=== PATIENT | male | born 2000 ===

== ENCOUNTER 2018-11-21 15:45 | Inpatient (IN) | payer OTHER ==
[2018-11-21 16:28] VITALS: O2SAT 99
--- NOTE | 2018-11-21 16:47 | C.PDOC ---
History Of Present Illness 18 years old male with no PMHx presents to ED for evaluation of feeling "pressure to head" and anxious. ongoing issue for months. Mother at bed side states patient has been acting bizarre, "sometimes seen with candles at night, reading bible, pacing"Denies fevers or any other complaints. Patient noted in ER to have no acute distress. Time Seen by Provider: 11/21/18 16:01 Chief Complaint (Nursing): Headache History Per: Patient, Family (Mother ) History/Exam Limitations: no limitations Onset/Duration Of Symptoms: Hrs Current Symptoms Are (Timing): Still Present Preceeding Symptoms: None Recent travel outside of the [place]: No Past Medical History Reviewed: Historical Data, Nursing Documentation, Vital Signs Vital Signs: Last Vital Signs Temp 99.4 F 11/21/18 15:56 Pulse 94 H 11/21/18 15:56 Resp 18 11/21/18 15:56 BP 137/88 11/21/18 15:56 Pulse Ox 99 11/21/18 15:56 - Medical History PMH: No Chronic Diseases Surgical History: No Surg Hx Family History: States: No Known Family Hx - Social History Hx Alcohol Use: No Hx Substance Use: No - Immunization History Hx Tetanus Toxoid Vaccination: No Hx Influenza Vaccination: No Hx Pneumococcal Vaccination: No Review Of Systems Except As Marked, All Systems Reviewed And Found Negative. Constitutional: Negative for: Fever, Chills Gastrointestinal: Negative for: Nausea, Vomiting, Diarrhea Skin: Negative for: Rash Neurological: Positive for: Other (Pressure to head ). Negative for: Weakness, Numbness Psych: Positive for: Anxiety. Negative for: Suicidal ideation Physical Exam - Physical Exam Appears: Non-toxic, No Acute Distress, Other (Anxious ) Skin: Normal Color, Warm, Dry, No Rash Head: Atraumatic, Normacephalic Eye(s): bilateral: Normal Inspection, PERRL, EOMI Oral Mucosa: Moist Neck: Normal ROM, Supple Chest: Symmetrical, No Tenderness Cardiovascular: Rhythm Regular, No Murmur Respiratory: Normal Breath Sounds, No Rales, No Rhonchi, No Wheezing Gastrointestinal/Abdominal: Soft, No Tenderness Extremity: Normal ROM Extremity: Bilateral: Atraumatic, Normal Color And Temperature, Normal ROM Pulses: Left Radial: Normal, Right Radial: Normal Neurological/Psych: Oriented x3, Normal Speech, Other (No focal deficits ) Gait: Steady ED Course And Treatment - Laboratory Results Result Diagrams: 11/21/18 17:29 11/21/18 17:29 O2 Sat by Pulse Oximetry: 99 (RA) Pulse Ox Interpretation: Normal Medical Decision Making Medical Decision Making: ro medical etiology, suspect underlying pyschaitric illness Plan: * Blood work * Urinalysis * CT Head labs ct neg. visual acuity 20/20. . medically cleared . accepted dr guo. Disposition - Disposition Disposition: HOSPITALIZED Disposition Time: 19:51 Condition: STABLE - Clinical Impression Clinical Impression: Schizophrenia - PA / COMPOSITOR APPRENTICE / Resident Statement MD/DO has reviewed & agrees with the documentation as recorded. - Scribe Statement Carlos Tinoco All medical record entries made by the Scribe were at my direction and personally dictated by me. I have reviewed the chart and agree that the record accurately reflects my personal performance of the history, physical exam, medical decision making, and the department course for this patient. I have also personally directed, reviewed, and agree with the discharge instructions and disposition. Decision To Admit - Pt Status Changed To: Hospital Disposition Of: Inpatient - Admit Certification Admit to Inpatient:: After my assessment, the patient will require hospitalization for at least two midnights. This is because of the severity of symptoms shown, intensity of services needed, and/or the medical risk in this patient being treated as an outpatient. - InPatient: Physician Admission Certification: I certify that this patient requires 2 or more midnights of care for the following reason:: needs psych - . Bed Request Type: Psychiatry Admitting Physician: Nhung Guo Patient Diagnosis: Schizophrenia
[2018-11-21 17:36] LABS: BASO % 0.4 % (0.0-2.0); EOS # 0.1 K/uL (0.0-0.7); EOS % 1.6 % (0.0-4.0); HEMOGLOBIN 15.5 g/dL (12.0-18.0); LYMPH # 1.6 K/uL (1.0-4.3); LYMPH % 27.6 % (20.0-40.0); MEAN CELL VOLUME 90.9 fL (80.0-94.0); MEAN CORPUSCULAR HEMOGLOBIN 31.2 pg (27.0-31.0); MEAN CORPUSCULAR HGB CONC 34.3 g/dL (33.0-37.0); MEAN PLATELET VOLUME 8.8 fL (7.2-11.7); MONO # 0.5 K/uL (0.0-0.8); MONO % 7.7 % (0.0-10.0); NEUT # 3.7 K/uL (1.8-7.0); NEUT % 62.7 % (50.0-75.0); RBC 4.97 Mil/uL (4.40-5.90); RED CELL DISTRIBUTION WIDTH 12.5 % (11.5-14.5); WHITE BLOOD COUNT 5.9 K/uL (4.8-10.8)
[2018-11-21 17:39] LABS: URINE BILIRUBIN NEGATIVE (NEGATIVE); URINE BLOOD NEGATIVE (NEGATIVE); URINE CLARITY Hazy (Clear); URINE COLOR Yellow (YELLOW); URINE GLUCOSE (UA) NORMAL (Normal); URINE LEUKOCYTE ESTERASE NEG Leu/uL (Negative); URINE PROTEIN NEGATIVE (NEGATIVE); URINE UROBILINOGEN NORMAL mg/dL (0.2-1.0)
[2018-11-21 17:49] LABS: ALB/GLOB RATIO 1.7 (1.0-2.1); ALBUMIN 4.6 g/dL (3.5-5.0); ALT/SGPT 22 U/L (21-72); AST/SGOT 28 U/L (17-59); BLOOD UREA NITROGEN 12 mg/dL (9-20); GFR NON-AFRICAN AMERICAN > 60
[2018-11-21 18:02] LABS: BARBITURATES, UR NEGATIVE (NEGATIVE); BENZODIAZEPINES, UR NEGATIVE (NEGATIVE); OPIATES, UR NEGATIVE (NEGATIVE); PHENCYCLIDINE, UR NEGATIVE (NEGATIVE)
--- NOTE | 2018-11-21 18:45 | CT ---
Date of service: 11/21/2018 PROCEDURE: CT HEAD WITHOUT CONTRAST. HISTORY: [place] COMPARISON: None available. TECHNIQUE: Axial computed tomography images were obtained through the head/brain without intravenous contrast. Radiation dose: Total exam DLP = 913.44 mGy-cm. This CT exam was performed using one or more of the following dose reduction techniques: Automated exposure control, adjustment of the mA and/or kV according to patient size, and/or use of iterative reconstruction technique. FINDINGS: HEMORRHAGE: No intracranial hemorrhage. BRAIN: No mass effect or edema. No atrophy or chronic microvascular ischemic changes. VENTRICLES: Unremarkable. No hydrocephalus. CALVARIUM: Unremarkable. PARANASAL SINUSES: Unremarkable as visualized. No significant inflammatory changes. MASTOID AIR CELLS: Unremarkable as visualized. No inflammatory changes. OTHER FINDINGS: None. IMPRESSION: No evidence of acute intracranial hemorrhage intracranial collection mass effect or midline shift.
--- NOTE | 2018-11-21 21:28 | PCM.BM ---
<Eric Musa - Last Filed: 11/21/18 21:26> Treatment Plan Problems - Problems identified on initial assessmt Altered thought process Date Initiated: 11/21/18 Time Initiated: 21:26 Assessment reference: NA Anxiety Date Initiated: 11/21/18 Time Initiated: 21:27 Assessment reference: NA Status: Active Treatment assets and liabiliti Patient Assests: cooperative, self-reliant, ADL independent, physically healthy, good support system, negotiates basic needs, cognitively intact Patient Liabilities: imparied memory (Forgetful), other (Frequent complaints of Headaches) - Milieu Protocol Maintain good personal hygiene: daily Encourage regular showers, daily Remind patient to perform daily oral care, every shift Assist patient to perform ADL's Conduct patient checks and document Observation sheet: Q15 minutes (For safety) Maintain personal safety: every shift Educate patient to report safety concerns to staff, every shift Monitor environment for contraband/sharps Medication safety: Monitor for expected outcome, potential side effects: every shift, Assess barriers to learning: every shift, Assess readiness for medication education: every shift <Get Bach - Last Filed: 11/23/18 11:50> - Diagnosis (1) Schizophrenia Status: Acute Interventions: 11/23/18 11:50 * Assess/adjust medications daily and /or as needed * See patient on an individual basis 7x/week to assess status of hallucinations * Discuss risks, benefits, side effects and alternatives of medications * <Melvi Guzman - Last Filed: 11/25/18 09:36> Family Contact Family involvement: Family/SO is involved Family contact: Patient agrees to contact - Goals for Treatment Patient goals for treatment: "I want to go back to the [facility] Discharge/Continuing Care - Education Needs Education Needs: Patient Medication, Patient Coping Skills - Discharge Discharge Criteria: Tolerates medication w/o severe side effects, Reduction of target symptoms Discharge to:: Home, With Family - Treatment Team Participation Discussed with Family/SO: No Was Patient/Family/SO present at Treatment Team Meeting: Yes
--- NOTE | 2018-11-22 16:59 | CP.PCM.CON ---
History of Present Illness - History of Present Illness History of Present Illness: Neurology Consult Note: Consult requested by Dr. Lucero Joneswily is a 18-year-old man with no past medical history who is admitted for anxiety and alteration of thought process. He states that he was under a significant amount of stress yesterday and had a headache and blurry vision. The headache was 8/10 in severity, involved the whole head and was pressure like. He states that he gets these headaches in the afternoon sometimes when he is tired and stressed out. CT scan of the head was normal. Today, his headache is gone. Review of Systems - Review of Systems All systems: reviewed and no additional remarkable complaints except Past Patient History - Past Social History Smoking Status: Never Smoked - CARDIAC Hx Cardiac Disorders: No Hx Hypertension: No - PULMONARY Hx Tuberculosis: No - NEUROLOGICAL HX Cerebrovascular Accident: No Hx Seizures: No - HEMATOLOGICAL/ONCOLOGICAL Hx Cancer: No Hx Human Immunodeficiency Virus (HIV): No - GENITOURINARY/GYNECOLOGICAL Hx Sexually Transmitted Disorders: No - PSYCHIATRIC Hx Substance Use: No - SURGICAL HISTORY Hx Surgeries: No - ANESTHESIA Hx Anesthesia: No Meds Allergies/Adverse Reactions: Allergies Allergy/AdvReac Type Severity Reaction Status Date / Time No Known Allergies Allergy Verified 11/21/18 15:59 - Medications Medications: Current Medications Influenza Virus Vaccine (Flucelvax Quad [id number] Syr) 60 mcg IM .ONCE ONE Stop: 11/23/18 10:01 Pneumococcal Polyvalent Vaccine (Pneumovax 23 Vaccine) 0.5 ml IM .ONCE ONE Stop: 11/23/18 10:01 Physical Exam - Constitutional Appears: Well - Head Exam Head Exam: ATRAUMATIC, NORMAL INSPECTION, NORMOCEPHALIC - Eye Exam Eye Exam: EOMI, Normal appearance, PERRL Pupil Exam: NORMAL ACCOMODATION, PERRL - ENT Exam ENT Exam: Mucous Membranes Moist, Normal Exam - Neck Exam Neck exam: Positive for: Normal Inspection - Respiratory Exam Respiratory Exam: Clear to Auscultation Bilateral, NORMAL BREATHING PATTERN - Cardiovascular Exam Cardiovascular Exam: REGULAR RHYTHM - GI/Abdominal Exam GI & Abdominal Exam: Normal Bowel Sounds, Soft. absent: Tenderness - Extremities Exam Extremities exam: Positive for: normal inspection - Back Exam Back exam: NORMAL INSPECTION - Neurological Exam Neurological exam: Alert, CN II-XII Intact, Normal Gait, Oriented x3, Reflexes Normal - Psychiatric Exam Psychiatric exam: Normal Affect, Normal Mood - Skin Skin Exam: Dry, Intact, Normal Color, Warm Results - Vital Signs Recent Vital Signs: Last Vital Signs Temp 99.1 F 11/21/18 19:23 Pulse 79 11/22/18 16:18 Resp 16 11/21/18 19:23 BP 130/77 11/22/18 16:18 Pulse Ox 99 11/21/18 19:53 - Labs Result Diagrams: 11/21/18 17:29 11/21/18 17:29 Labs: Laboratory Results - last 24 hr 11/21/18 11/21/18 11/21/18 17:29 17:29 17:29 WBC 5.9 RBC 4.97 Hgb 15.5 Hct 45.2 MCV 90.9 MCH 31.2 H MCHC 34.3 RDW 12.5 Plt Count 190 MPV 8.8 Neut % (Auto) 62.7 Lymph % (Auto) 27.6 [place] % (Auto) 7.7 Eos % (Auto) 1.6 Baso % (Auto) 0.4 Neut # (Auto) 3.7 Lymph # (Auto) 1.6 [place] # (Auto) 0.5 Eos # (Auto) 0.1 Baso # (Auto) 0.0 Sodium 139 Potassium 4.4 Chloride 101 Carbon Dioxide 28 Anion Gap 14 BUN 12 Creatinine 0.8 Est GFR ( Amer) > 60 Est GFR (Non-Af Amer) > 60 Random Glucose 95 Calcium 10.0 Phosphorus 3.5 Magnesium 2.1 Total Bilirubin 1.1 AST 28 ALT 22 Alkaline Phosphatase 64 Total Protein 7.3 Albumin 4.6 Globulin 2.7 Albumin/Globulin Ratio 1.7 Urine Color Yellow Urine Clarity Hazy Urine pH 7.0 Ur Specific [place] 1.005 Urine Protein Negative Urine Glucose (UA) Normal Urine Ketones Negative Urine Blood Negative Urine Nitrate Negative Urine Bilirubin Negative Urine Urobilinogen Normal Ur Leukocyte Esterase Neg Urine WBC (Auto) < 1 Urine Opiates Screen Urine Methadone Screen Ur Barbiturates Screen Ur Phencyclidine Scrn Ur Amphetamines Screen U Benzodiazepines Scrn U Oth Cocaine Metabols U Cannabinoids Screen Alcohol, Quantitative < 10 11/21/18 17:29 WBC RBC Hgb Hct MCV MCH MCHC RDW Plt Count MPV Neut % (Auto) Lymph % (Auto) [place] % (Auto) Eos % (Auto) Baso % (Auto) Neut # (Auto) Lymph # (Auto) [place] # (Auto) Eos # (Auto) Baso # (Auto) Sodium Potassium Chloride Carbon Dioxide Anion Gap BUN Creatinine Est GFR ( Amer) Est GFR (Non-Af Amer) Random Glucose Calcium Phosphorus Magnesium Total Bilirubin AST ALT Alkaline Phosphatase Total Protein Albumin Globulin Albumin/Globulin Ratio Urine Color Urine Clarity Urine pH Ur Specific [place] Urine Protein Urine Glucose (UA) Urine Ketones Urine Blood Urine Nitrate Urine Bilirubin Urine Urobilinogen Ur Leukocyte Esterase Urine WBC (Auto) Urine Opiates Screen Negative Urine Methadone Screen Negative Ur Barbiturates Screen Negative Ur Phencyclidine Scrn Negative Ur Amphetamines Screen Negative U Benzodiazepines Scrn Negative U Oth Cocaine Metabols Negative U Cannabinoids Screen Negative Alcohol, Quantitative Assessment & Plan (1) Tension headache, chronic Assessment and Plan: Would recommend starting magnesium oxide 400 mg BID and continue proper sleep hygiene and stress management. No further recommendations. Thank you. Status: Acute
[2018-11-23] MEDS ORDERED: Influenza Vaccine 60 mcg/0.5 mL SYR (4YR UP) IM ONE (10:00)
[2018-11-23] MEDS ORDERED: Pneumococcal 23-Valent Vaccine IM ONE (10:00)
--- NOTE | 2018-11-23 11:35 | PCM.PYCHPN ---
Psychiatric Progress Note - Psychiatric Progress Note Patient seen today, length of contact: 15 min Patient Chief Complaint: I cannot focus, I have severe headaches.' Problems Identified/Issues Discussed: Patient was seen and evaluated, chart reviewed and discussed with the staff. Patient still reports somatic symptoms including headaches, blurred vision and poor focus. He still appears disorganized and internally preoccupied. As per staff he remained isolative and withdrawn. However he remained calm and cooperative. He still appears paranoid and delusional. He is taking medication but denies any side effects. Supportive therapy was given. Medication Change: Yes Medical Record Reviewed: Yes Mental Status Examination - Cognitive Function Orientation: Person, Place, Situation, Time Memory: Intact Attention: Poor Concentration: Poor Association: Loose Fund of Knowledge: Poor - Mood Mood: Anxious - Affect Affect: Constricted - Speech Speech: Soft - Formal Thought Process Formal Thought Process: Delusions, Paranoia, Loosening of associations - Suicidal Ideation Suicidal Ideation: No - Homicidal Ideation Homicidal Ideation: No Goal/Treatment Plan - Goal/Treatment Plan Need for Continued Stay: Remain at risks for inpatient hospitalization Progress Toward Problem(s) and Goals/Treatment Plan: Schizophrenia paranoid type continues CBT Psychoeducation Supportive therapy and group therapy Hydroxyzine for anxiety Olanzapine for psychosis Ativan for severe anxiety Trazodone for insomnia - Smoking Cessation Smoking Cessation Initiated: No
[2018-11-23] MEDS: Aritificial Tears (15ml) OU PRN (20:11)
[2018-11-24] MEDS: Aritificial Tears (15ml) OU PRN (20:56)
--- NOTE | 2018-11-26 23:49 | PCM.PYCHPN ---
Psychiatric Progress Note - Psychiatric Progress Note Patient seen today, length of contact: 15 min Patient Chief Complaint: I cannot focus, I have severe headaches.' Problems Identified/Issues Discussed: Patient was seen and evaluated, chart reviewed and discussed with the staff. As per staff he remained isolative and withdrawn. However he remained calm and cooperative. He still appears disorganized and internally preoccupied. Patient still reports somatic symptoms including headaches, blurred vision and poor focus. He still appears paranoid and delusional. He is taking medication but denies any side effects. Supportive therapy was given. Medication Change: Yes Medical Record Reviewed: Yes Mental Status Examination - Cognitive Function Orientation: Person, Place, Situation, Time Memory: Intact Attention: Poor Concentration: Poor Association: Loose Fund of Knowledge: Poor - Mood Mood: Anxious - Affect Affect: Constricted - Speech Speech: Soft - Formal Thought Process Formal Thought Process: Delusions, Paranoia, Loosening of associations - Suicidal Ideation Suicidal Ideation: No - Homicidal Ideation Homicidal Ideation: No Goal/Treatment Plan - Goal/Treatment Plan Need for Continued Stay: Remain at risks for inpatient hospitalization Progress Toward Problem(s) and Goals/Treatment Plan: Schizophrenia paranoid type continues CBT Psychoeducation Supportive therapy and group therapy Hydroxyzine for anxiety Olanzapine for psychosis Ativan for severe anxiety Trazodone for insomnia
[2018-11-30 06:54] VITALS: RESP 20
--- NOTE | 2018-11-30 10:11 | PCM.BM ---
<Shannan Guzmany - Last Filed: 11/30/18 10:10> Treatment Plan Problems - Problems identified on initial assessmt Altered thought process Date Initiated: 11/21/18 Time Initiated: :26 Assessment reference: NA Anxiety Date Initiated: 11/21/18 Time Initiated: :27 Assessment reference: NA Status: Active Treatment assets and liabiliti Patient Assests: cooperative, self-reliant, ADL independent, physically healthy, good support system, negotiates basic needs, cognitively intact Patient Liabilities: imparied memory (Forgetful), other (Frequent complaints of Headaches) - Milieu Protocol Maintain good personal hygiene: daily Encourage regular showers, daily Remind patient to perform daily oral care, every shift Assist patient to perform ADL's Conduct patient checks and document Observation sheet: Q15 minutes (For safety) Maintain personal safety: every shift Educate patient to report safety concerns to staff, every shift Monitor environment for contraband/sharps Medication safety: Monitor for expected outcome, potential side effects: every shift, Assess barriers to learning: every shift, Assess readiness for medication education: every shift Milieu Narrative: Schizophrenia paranoid type continues CBT Psychoeducation Supportive therapy and group therapy Hydroxyzine for anxiety Olanzapine for psychosis Ativan for severe anxiety Trazodone for insomnia Family Contact Family involvement: Family/SO is involved Family contact: Patient agrees to contact - Goals for Treatment Patient goals for treatment: "I want to go back to the [facility] Patient's family/SO goals for treatment: For patient to not be depressed. Discharge/Continuing Care - Education Needs Education Needs: Patient Medication, Patient Coping Skills - Discharge Discharge Criteria: Tolerates medication w/o severe side effects, Reduction of target symptoms Discharge to:: Home, With Family - Treatment Team Participation Patient/Family/SO Statement: Schizophrenia paranoid type continues CBT Psychoeducation Supportive therapy and group therapy Hydroxyzine for anxiety Olanzapine for psychosis Ativan for severe anxiety Trazodone for insomnia Discussed with Family/SO: No Was Patient/Family/SO present at Treatment Team Meeting: Yes Treatment Plan Review - Problem Altered thought process Time Initiated: : Anxiety Time Initiated: 21:27 - Discharge / Continuing Care Discharge to:: Home, With Family Behavioral Health Services: Outpatient therapy Health Needs: Medications/Rx <Get Bach - Last Filed: 12/01/18 10:20> - Diagnosis (1) Schizophrenia Status: Acute Interventions: 12/01/18 10:19 * Assess/adjust medications daily and /or as needed * See patient on an individual basis 7x/week to assess status of hallucinations * Discuss risks, benefits, side effects and alternatives of medications *
[2018-12-01 06:45] VITALS: BP 125/79; PULSE 71; TEMP 97.5
--- NOTE | 2018-12-01 10:29 | PCM.PYCHDC ---
Mental Status Examination - Mental Status Examination Orientation: Person, Place, Situation, Time Memory: Intact Mood: Neutral Affect: Constricted Speech: Soft Attention: WNL Concentration: WNL Association: WNL Fund of Knowledge: WNL Formal Thought Process: No Impairment Description of patient's judgement and insight: good, fair Psychotic Thoughts and Behaviors: denies any AVH Suicidal Ideation: No Current Homicidal Ideation?: No Discharge Summary - Discharge Note Consultations:: List each consultation separately and include: 1. Reason for request. 2. Findings. 3. Follow-up Summary of Hospital Course include:: 1. Description of specific treatment plan utilized for patients during their course of treatmen. 2. Summarize the time- course for resolution of acute symptoms and/or regressed behaviors. 3. Describe issues identified and worked on during hospitalization. 4. Describe medication utilized. 5. Describe medical problems identified and treated. 6. Reassessment of suicide risk - Diagnosis (1) Schizophrenia Current Visit: Yes Status: Acute - Final Diagnosis (DSM 5) Condition upon Discharge: STABLE Disposition: HOME/ ROUTINE Follow-up Treatment Plan: Schizophrenia paranoid type continues CBT Psychoeducation Supportive therapy and group therapy Hydroxyzine for anxiety Olanzapine for psychosis Ativan for severe anxiety Trazodone for insomnia Prescriptions/Medication Reconciliation: hydrOXYzine HCl [Atarax] 25 mg PO DAILY #30 tab Olanzapine [Zyprexa] 10 mg PO BID #60 tablet traZODone [Desyrel] 50 mg PO HS PRN #30 tab PRN Reason: Insomnia
== END 2018-12-01 11:00 | disposition home or self-care (01) | DRG 885 ==
LOC: C.ER 15:45 → C.9E 19:08 → C.5E 20:29
PROVIDERS: ADMIT Psychiatry & Neurology Psychiatry; ATTEND Psychiatry & Neurology Psychiatry
PROC: GZ3ZZZZ Medication Management (ICD-10-PCS; principal; 2018-11-21)
PROC: GZHZZZZ Group Psychotherapy (ICD-10-PCS; 2018-11-21)
PROC: GZ56ZZZ Individual Psychotherapy, Supportive (ICD-10-PCS; 2018-11-21)
DX: F20.0 Paranoid schizophrenia (principal); G47.00 Insomnia, unspecified

== ENCOUNTER 2018-12-01 18:46 | Emergency (ER) | payer OTHER ==
[2018-12-01 19:11] VITALS: BMI 20.1
--- NOTE | 2018-12-01 20:53 | C.PDOC ---
History Of Present Illness Patient reports "anxiety attack" which began shortly prior to arrival, after he mistakenly took two 50mg trazodone tabs (he meant to take his other nighttime medications). Denies chest pain or shortness of breath, although family notes that he seemed to have difficulty breathing earlier. Patient was just discharged from psych unit and just went to fill his prescribed meds upon discharge. Denies any other symptoms. Denies SI/HI. Time Seen by Provider: 12/01/18 20:11 Chief Complaint (Nursing): Palpitations History Per: Patient, Family Past Medical History Reviewed: Historical Data, Nursing Documentation, Vital Signs - Medical History PMH: Anxiety Denies: Diabetes, Hepatitis, HIV, HTN, Seizures, Sexually Transmitted Disease Family History: States: Unknown Family Hx - Social History Hx Alcohol Use: No Hx Substance Use: No - Immunization History Hx Tetanus Toxoid Vaccination: No Hx Influenza Vaccination: No Hx Pneumococcal Vaccination: No Review Of Systems Except As Marked, All Systems Reviewed And Found Negative. Constitutional: Negative for: Fever, Chills Cardiovascular: Negative for: Chest Pain Respiratory: Negative for: Cough, Shortness of Breath Gastrointestinal: Negative for: Nausea, Vomiting Neurological: Negative for: Altered Mental Status Psych: Positive for: Anxiety. Negative for: Suicidal ideation Physical Exam - Physical Exam Appears: Well, No Acute Distress Skin: Normal Color, Warm, Dry Head: Atraumatic, Normacephalic Eye(s): bilateral: Normal Inspection Oral Mucosa: Moist Chest: Symmetrical Cardiovascular: Rhythm Regular (tachycardia) Respiratory: Normal Breath Sounds Gastrointestinal/Abdominal: Normal Exam Extremity: Normal ROM Neurological/Psych: Oriented x3, Normal Speech Gait: Steady Medical Decision Making Medical Decision Making: Patient in no distress throughout ED course. Placed on continuous cardiac monitoring. HR improved to 88. No other complaints. Stable for discharge home. Explained prescription instructions to patient and family. Disposition - Disposition Disposition: HOME/ ROUTINE Disposition Time: 21:40 Condition: STABLE Additional Instructions: MU BEARD, thank you for letting us take care of you today. Your provider was Elizabeth Waldron MD and you were treated for ANXIETY. The emergency medical care you received today was directed at your acute symptoms. If you were prescribed any medication, please fill it and take as directed. It may take several days for your symptoms to resolve. Return to the Emergency Department if your symptoms worsen, do not improve, or if you have any other problems. Please contact your doctor or call one of the physicians/clinics you have been referred to that are listed on the Patient Visit Information form that is included in your discharge packet. Bring any paperwork you were given at discharge with you along with any medications you are taking to your follow up visit. Our treatment cannot replace ongoing medical care by a primary care provider outside of the emergency department. Thank you for allowing the [facility] team to be part of your care today. If you had an X-Ray or CT scan: A Radiologist will review the ED reading if any change in treatment is needed we will contact you. If you had a blood, urine, or wound culture: It will take several days for the results, if any change in treatment is needed we will contact you. If you had an STI test: It will take 48 hours for the results. Please call after 1 week if you have not heard back. Instructions: Anxiety, Adult (DC) Forms: [employer] (Mongolian) Print Language: BURKINAN - Clinical Impression Clinical Impression: Anxiety
[2018-12-01 22:21] VITALS: BP 129/75; PULSE 92; RESP 18; O2SAT 97
--- NOTE | 2018-12-04 10:12 | CARD ---
APPROVED REPORT Date of service: 12/01/2018 EKG Measurement Heart [id number] <Conclusion> Sinus tachycardia Otherwise normal ECG
== END 2018-12-01 22:21 | disposition home or self-care (01) ==
LOC: C.ER 18:46
DX: F41.9 Anxiety disorder, unspecified (principal)